=== PATIENT | male | born 1995 ===

== ENCOUNTER 2023-07-25 06:23 | Emergency (ER) | payer SELFPAY ==
[~2023-07-25] VITALS: Ht 177.8 cm; Wt 120.0 kg
[2023-07-25] MEDS ORDERED: KETOROLAC INJ 30 MG/ML VIAL IVP STA (06:56)
[2023-07-25] MEDS ORDERED: NS IV 1000 ML 1,000 ML IV ONE (07:00)
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
[2023-07-25 07:29] LABS: BASOPHILS % (AUTO) 0 % (0-10); EOSINOPHILS # (AUTO) 0.1 10^3/uL (0.0-0.3); EOSINOPHILS % (AUTO) 2 % (0-10); HEMATOCRIT 48 % (40-54); HEMOGLOBIN 16.2 g/dL (13.3-17.7); LYMPHOCYTES # (AUTO) 2.3 10^3/uL (1.0-4.0); LYMPHOCYTES % (AUTO) 33 % (12-44); MEAN CORPUSCULAR HEMOGLOBIN 32 pg (25-34); MEAN CORPUSCULAR HGB CONC 34 g/dL (32-36); MEAN CORPUSCULAR VOLUME 93 fL (80-99); MEAN PLATELET VOLUME 10.1 fL (9.0-12.2); MONOCYTES # (AUTO) 0.4 10^3/uL (0.0-1.0); MONOCYTES % (AUTO) 6 % (0-12); NEUTROPHILS # (AUTO) 4.2 10^3/uL (1.8-7.8); NEUTROPHILS % (AUTO) 60 % (42-75); PLATELET COUNT 254 10^3/uL (130-400)
[2023-07-25] MEDS ORDERED: IOHEXOL 350 MG/ML 100 ML (OMNIPAQUE 350) VIAL IV ONE (07:30)
[2023-07-25] MEDS ORDERED: HOLD METFORMIN - RECEIVED CONTRAST 20 ML VIAL IV SCH (07:30)
[2023-07-25] MEDS ORDERED: NS 100 ML (IVPB) BAG IV ONE (07:30)
[2023-07-25 07:37] LABS: ALBUMIN 4.4 GM/DL (3.2-4.5)
[2023-07-25 07:38] LABS: CALCIUM 9.4 MG/DL (8.5-10.1)
[2023-07-25 07:41] LABS: BILIRUBIN,TOTAL 0.5 MG/DL (0.1-1.0)
[2023-07-25 07:43] LABS: CREATININE SERUM 0.92 MG/DL (0.60-1.30)
[2023-07-25 07:49] LABS: ERYTHROCYTE SEDIMENTATION RATE 9 MM/HR (0-15)
[2023-07-25] MEDS ORDERED: fentaNYL INJECTION 100 MCG/2 ML VIAL IVP STA (07:56)
[2023-07-25] MEDS ORDERED: dexAMETHasone INJ 10 MG/ML 1 ML VIAL IV ONE (08:00)
--- NOTE | 2023-07-25 08:16 | Diagnostic Imaging Report ---
INDICATION: Incessant headache with progression. Family history of aneurysm. CTA of the head is performed prior to and after bolus intravenous administration of iodinated contrast. 3-D reformatted images are produced. Ventricles and sulci are within normal limits for size. No hemorrhage is identified. There is no abnormal mass effect or shift midline structures. Calvarium is intact and the visualized paranasal sinuses are clear. CTA images reveal good opacification of anterior, middle and posterior cerebral arteries, bilaterally. There is no evidence of aneurysm or vascular malformation. No significant stenosis or occlusion is seen. There is no abnormal contrast enhancement. IMPRESSION: 1. No acute intracranial abnormality or abnormal enhancement 2. No CTA evidence of great vessel abnormality in the head. Dictated by: Dictated on workstation # [id number]
[2023-07-25] MEDS ORDERED: PROMETHAZINE INJ 25 MG/ML VIAL IVP STA (08:54)
[2023-07-25] MEDS ORDERED: diphenhydrAMINE INJ 50 MG/ML VIAL IV STA (08:54)
[2023-07-25] MEDS ORDERED: NS IV 500 ML 500 ML IV ONE (09:00)
[2023-07-25 09:30] VITALS: BP 129/75
== END 2023-07-25 09:41 | disposition home or self-care (01) ==
LOC: ER 06:27
DX: G43.909 Migraine, unspecified, not intractable, without status migrainosus (principal); F17.210 Nicotine dependence, cigarettes, uncomplicated
CPT/HCPCS: 36415; 70496; 80053; 85025; 85652; 86141